=== PATIENT | female | born 1960 | race Caucasian/White ===

== ENCOUNTER 2016-11-19 21:26 | Emergency (ER) | payer SELFPAY ==
[2016-11-19 21:26] VITALS: BMI 28.3
[2016-11-19] MEDS ORDERED: Sodium Chloride 0.9% 1,000 ML IV STA (22:02)
--- NOTE | 2016-11-19 22:34 | CT ---
EXAM: CT Head Without Intravenous Contrast EXAM DATE/TIME: 11/19/2016 10:01 PM CLINICAL HISTORY: 55 years old, female; Signs and symptoms; Dizziness; Additional info: Dizziness. HX. Of TIA TECHNIQUE: Axial computed tomography images of the head/brain without intravenous contrast. All CT scans at this facility use one or more dose reduction techniques, viz.: automated exposure control; ma/kV adjustment per patient size (including targeted exams where dose is matched to indication; i.e. head); or iterative reconstruction technique. Coronal and sagittal reformatted images were created and reviewed. COMPARISON: CT - HEAD W/O CONTRAST 03/29/2015 8:07:06 PM FINDINGS: No intracranial hemorrhage. No intracranial edema. No evidence of infarct. The sinuses and mastoid air cells are clear. IMPRESSION: No acute findings. No significant change.
[2016-11-19 22:41] LABS: BASO # 0.1 K/uL (0.0-0.2); BASO % 1.1 % (0.0-2.0); EOS # 0.2 K/uL (0.0-0.7); EOS % 3.1 % (0.0-4.0); LYMPH # 2.4 K/uL (1.0-4.3); LYMPH % 33.6 % (20.0-40.0); MEAN CELL VOLUME 84.5 fl (81.0-99.0); MEAN CORPUSCULAR HEMOGLOBIN 27.7 pg (27.0-31.0); MEAN CORPUSCULAR HGB CONC 32.8 g/dL (33.0-37.0); MEAN PLATELET VOLUME 9.9 fl (7.2-11.7); MONO # 0.6 K/uL (0.0-0.8); MONO % 7.6 % (0.0-10.0); NEUT % 54.6 % (50.0-75.0); RED CELL DISTRIBUTION WIDTH 13.6 % (11.5-14.5); WHITE BLOOD COUNT 7.3 K/uL (4.8-10.8)
[2016-11-19 22:42] LABS: RBC URINE 3 /hpf (0-3); URINE BACTERIA OCC (<OCC); URINE BILIRUBIN NEGATIVE (NEGATIVE); URINE BLOOD NEGATIVE (NEGATIVE); URINE COLOR YELLOW (YELLOW); URINE GLUCOSE (UA) NEG (Normal); URINE KETONE NEGATIVE (NEGATIVE); URINE LEUKOCYTE ESTERASE MOD Leu/uL (Negative); URINE PROTEIN NEGATIVE (NEGATIVE); URINE UROBILINOGEN 0.2-1.0 mg/dL (0.2-1.0)
[2016-11-19 22:46] LABS: WBC URINE 18 /hpf (0-5)
--- NOTE | 2016-11-19 22:48 | ED PDOC ---
HPI: Neurologic - General Time Seen by Provider: 11/19/16 21:41 Chief Complaint (Nursing): Dizziness/Lightheaded Chief Complaint (Provider): Dizziness Source: patient Exam Limitations: no limitations - History of Present Illness Timing/Duration: other (x 3 days) Allergies/Adverse Reactions: Allergies No Known Allergies Allergy (Verified 04/21/15 08:02) Home Medications: Ambulatory Orders Meclizine [Antivert] 12.5 mg PO BID PRN #20 tab 03/29/15 Cyclobenzaprine [Cyclobenzaprine HCl] 10 mg PO Q8 PRN #12 tab 11/21/15 Ibuprofen [Motrin] 600 mg PO TID PRN #30 tab 11/21/15 Methylprednisolone [Medrol Dose Pack (21 tabs)] 4 mg PO DAILY #1 packet Ibuprofen [Motrin Tab] 600 mg PO Q6 #30 tab 02/11/16 Oseltamivir [Tamiflu Cap] 75 mg PO BID 5 Days 02/11/16 Ciprofloxacin [Cipro] 500 mg PO Q12 #14 tab 11/19/16 Meclizine [Antivert] 25 mg PO Q6 PRN #30 tab 11/19/16 Additional Complaint(s): Yadi is a 55 y/o female with a history of vertebral basilar insufficiency who presents complaining of intermittent dizziness associated with headache and neck pain, for 3 days. Patient reports dizziness is worse with movement and sudden change in position. Also describes nausea, she vomited once this morning. PMD: Unknown Past Medical History Reviewed: Historical Data, Nursing Documentation, Vital Signs Vital Signs: Last Vital Signs Temp 97.0 F L 11/19/16 21:30 Pulse 81 11/19/16 21:30 Resp 18 11/19/16 21:30 BP 131/58 L 11/19/16 21:30 Pulse Ox 98 11/19/16 21:30 - Medical History PMH: Gastritis, GERD, Hypercholesterolemia, TIA Denies: Chronic Kidney Disease Other PMH: vertebral basilar insufficiency - Surgical History Surgical History: Endoscopy - Family History Family History: States: Unknown Family Hx - Social History Current smoker - smoking cessation education provided: No Alcohol: None Drugs: Denies - Home Medications Home Medications: Ambulatory Orders Medication Instructions Recorded Meclizine [Antivert] 12.5 mg PO BID PRN #20 tab 03/29/15 Cyclobenzaprine [Cyclobenzaprine 10 mg PO Q8 PRN #12 tab 11/21/15 HCl] Ibuprofen [Motrin] 600 mg PO TID PRN #30 tab 11/21/15 Methylprednisolone [Medrol Dose 4 mg PO DAILY #1 packet 11/21/15 Pack (21 tabs)] Ibuprofen [Motrin Tab] 600 mg PO Q6 #30 tab 02/11/16 Oseltamivir [Tamiflu Cap] 75 mg PO BID 5 Days 02/11/16 Ciprofloxacin [Cipro] 500 mg PO Q12 #14 tab 11/19/16 Meclizine [Antivert] 25 mg PO Q6 PRN #30 tab 11/19/16 - Allergies Allergies/Adverse Reactions: Allergies Allergy/AdvReac Type Severity Reaction Status Date / Time No Known Allergies Allergy Verified 04/21/15 08:02 Review of Systems ROS Statement: Except As Marked, All Systems Reviewed And Found Negative Gastrointestinal: Positive for: Nausea, Vomiting Neurological: Positive for: Dizziness Physical Exam - Reviewed Nursing Documentation Reviewed: Yes Vital Signs Reviewed: Yes - Physical Exam Appears: Positive for: Non-toxic, No Acute Distress Head Exam: Positive for: ATRAUMATIC, NORMAL INSPECTION, NORMOCEPHALIC Skin: Positive for: Normal Color, Warm, Dry Eye Exam: Positive for: EOMI, Normal appearance, PERRL Neck: Positive for: Normal, Painless ROM, Supple Cardiovascular/Chest: Positive for: Regular Rate, Rhythm. Negative for: Murmur Respiratory: Positive for: Normal Breath Sounds. Negative for: Accessory Muscle Use, Respiratory Distress Gastrointestinal/Abdominal: Positive for: Normal Exam, Soft. Negative for: Tenderness Back: Positive for: Normal Inspection. Negative for: L CVA Tenderness, R CVA Tenderness, Vertebral Tenderness Extremity: Positive for: Normal ROM. Negative for: Pedal Edema, Deformity Neurologic/Psych: Positive for: Alert, Oriented. Negative for: Motor/Sensory Deficits - Laboratory Results Result Diagrams: 11/19/16 22:09 11/19/16 22:40 - ECG O2 Sat by Pulse Oximetry: 98 (RA) Pulse Ox Interpretation: Normal Medical Decision Making Medical Decision Making: Time: 21:15 Initial Impression: 55 y/o female with vertiginous dizziness Initial Plan: --CT Head w/o contrast --EKG --CMP --Urine test --Urine dipstick --Urinalysis --CBC --PTT --Prothrombin time --NS IV 1000 ml at 1000 mls/hr --Trial of Meclizine --Pending reevaluation and disposition Time: 22:34 CT Head w/o contrast: FINDINGS: No intracranial hemorrhage. No intracranial edema. No evidence of infarct. The sinuses and mastoid air cells are clear. IMPRESSION: No acute findings. No significant change. --Labs reviewed, and revealed no clinically significant abnormalities, with the exception of urinalysis significant for UTI Time: 23:05 --Given 10 mg Toradol IV and 10 mg Flexeril PO Time: 23:49 --Patient reports significant improvement in symptoms Diagnoses: Vertigo, UTI Upon provider reevaluation patient is feeling better, medically stable, and requires no further treatment in the ED at this time. Patient will be discharged with Rx for Antivert and Cipro. Counseling was provided and all questions were answered regarding diagnosis and need for follow up with PMD. There is agreement to discharge plan. Return if symptoms persist or worsen. Scribe Attestation: Documented by Nakia Casanova, acting as a scribe for Andrew Mendoza MD Provider Scribe Attestation: All medical record entries made by the Scribe were at my direction and personally dictated by me. I have reviewed the chart and agree that the record accurately reflects my personal performance of the history, physical exam, medical decision making, and the department course for this patient. I have also personally directed, reviewed, and agree with the discharge instructions and disposition. Disposition - Clinical Impression Clinical Impression: Vertigo - Patient ED Disposition Is Patient to be Admitted: No Counseled Patient/Family Regarding: Studies Performed, Diagnosis, Need For Followup - Disposition Disposition: Routine/Home Disposition Time: 23:49 Condition: STABLE Prescriptions: Ciprofloxacin [Cipro] 500 mg PO Q12 #14 tab Meclizine [Antivert] 25 mg PO Q6 PRN #30 tab PRN Reason: Dizziness Instructions: Urinary Tract Infection in Women (ED), Vertigo (ED) Forms: [employer] (Tanzanian) Print Language: INDONESIAN
[2016-11-19 22:52] LABS: ALB/GLOB RATIO 1.7 (1.0-2.1); ALKALINE PHOSPHATASE 111 U/L (38-126); ALT/SGPT 81 U/L (9-52); AST/SGOT 41 U/L (14-36); BILIRUBIN,TOTAL 0.4 mg/dl (0.2-1.3); BLOOD UREA NITROGEN 17 mg/dl (7-17); CALCIUM 9.5 mg/dL (8.4-10.2); CARBON DIOXIDE 23 mmol/L (22-30); CHLORIDE 105 mmol/L (98-107); GFR AFRICAN-AMERICAN > 60; GLUCOSE,RANDOM 112 mg/dL (65-105); POTASSIUM 3.8 MMOL/L (3.6-5.0); SODIUM 139 mmol/l (132-148); TOTAL PROTEIN 7.1 G/DL (6.3-8.2)
[2016-11-19 22:54] LABS: PARTIAL THROMBOPLASTIN TIME 32.4 Seconds (25.6-37.1)
[2016-11-20 00:29] VITALS: BP 129/76; PULSE 78; RESP 16; TEMP 98; O2SAT 99
--- NOTE | 2016-11-20 21:08 | CARD ---
APPROVED REPORT EKG Measurement Heart [id number] <Conclusion> Normal sinus rhythm Normal ECG
== END 2016-11-20 00:30 | disposition home or self-care (01) ==
LOC: H.ER 21:26
DX: R42 Dizziness and giddiness (principal); N39.0 Urinary tract infection, site not specified; K21.9 Gastro-esophageal reflux disease without esophagitis; Z86.73 Personal history of transient ischemic attack (TIA), and cerebral infarction without residual deficits
CPT/HCPCS: 70450; 80053; 81003; 85025; 85610; 85730; 93005; 96360; 99283; J1885; J7040

== ENCOUNTER 2017-10-27 18:50 | Emergency (ER) | payer SELFPAY ==
[2017-10-27 19:06] VITALS: BP 118/52; PULSE 78; RESP 16; TEMP 98.5; O2SAT 97
[2017-10-27 19:08] VITALS: BMI 29.2
--- NOTE | 2017-10-27 19:29 | ED PDOC ---
HPI: Back Time Seen by Provider: 10/27/17 19:29 Chief Complaint (Nursing): Back Pain Chief Complaint (Provider): back pain History Per: Patient Additional Complaint(s): 56-year-old female presents with lower back pain 1 week. Patient states the pain radiates down her left lower extremity from time to time. She denies recent fall or trauma. Tylenol has provided minimal relief pain. She last took Tylenol 1 hour prior to arrival. Patient denies any bowel or bladder dysfunction. PMD: [facility] Past Medical History Reviewed: Historical Data, Nursing Documentation, Vital Signs Vital Signs: Last Vital Signs Temp 98.5 F 10/27/17 19:05 Pulse 78 10/27/17 19:05 Resp 16 10/27/17 19:05 BP 118/52 L 10/27/17 19:05 Pulse Ox 97 10/27/17 19:05 - Medical History PMH: Gastritis, GERD, Hypercholesterolemia, TIA - Surgical History Surgical History: Endoscopy - Family History Family History: States: No Known Family Hx - Living Arrangements Living Arrangements: With Family - Social History Current smoker - smoking cessation education provided: No Alcohol: None Drugs: Denies - Home Medications Home Medications: Ambulatory Orders Medication Instructions Recorded Meclizine [Antivert] 12.5 mg PO BID PRN #20 tab 03/29/15 Cyclobenzaprine [Cyclobenzaprine 10 mg PO Q8 PRN #12 tab 11/21/15 HCl] Ibuprofen [Motrin] 600 mg PO TID PRN #30 tab 11/21/15 Methylprednisolone [Medrol Dose 4 mg PO DAILY #1 packet 11/21/15 Pack (21 tabs)] Ibuprofen [Motrin Tab] 600 mg PO Q6 #30 tab 02/11/16 Oseltamivir [Tamiflu Cap] 75 mg PO BID 5 Days cap 02/11/16 Ciprofloxacin [Cipro] 500 mg PO Q12 #14 tab 11/19/16 Cyclobenzaprine [Cyclobenzaprine 10 mg PO TID PRN #15 tab 11/20/16 HCl] Meclizine [Antivert] 25 mg PO Q6 PRN #30 tab 11/20/16 Cyclobenzaprine [Cyclobenzaprine 10 mg PO TID PRN #20 tab 10/27/17 HCl] Prednisone 50 mg PO DAILY #5 tablet 10/27/17 traMADol [Ultram] 50 mg PO Q6H PRN #15 tab 10/27/17 - Allergies Allergies/Adverse Reactions: Allergies Allergy/AdvReac Type Severity Reaction Status Date / Time No Known Allergies Allergy Verified 04/21/15 08:02 Review of Systems ROS Statement: Except As Marked, All Systems Reviewed And Found Negative Constitutional: Negative for: Fever Cardiovascular: Negative for: Chest Pain Respiratory: Negative for: Cough Gastrointestinal: Negative for: Nausea, Vomiting Genitourinary Female: Negative for: Dysuria, Frequency, Incontinence Musculoskeletal: Positive for: Back Pain Physical Exam - Reviewed Nursing Documentation Reviewed: Yes Vital Signs Reviewed: Yes - Physical Exam Appears: Positive for: Well, Non-toxic, No Acute Distress Skin: Positive for: Normal Color. Negative for: Rash Eye Exam: Positive for: Normal appearance Neck: Positive for: Normal Cardiovascular/Chest: Positive for: Regular Rate, Rhythm Respiratory: Positive for: Normal Breath Sounds Back: Positive for: Vertebral Tenderness (Tenderness along midline of lumbar spine with no step-off, negative bilateral straight leg raise, patient able to heel and toe walk). Negative for: L CVA Tenderness, R CVA Tenderness Extremity: Positive for: Normal ROM Neurologic/Psych: Positive for: Alert, Oriented, Gait (steady) - Laboratory Results Urine dip results: Negative for: Leukocyte Esterase, Blood, Nitrate, Ketones, Glucose, Bilirubin, Protein - ECG O2 Sat by Pulse Oximetry: 97 Pulse Ox Interpretation: Normal - Other Rad LS Spine X-ray X-Ray: Interpreted by Me, Viewed By Me X-Ray Interpretation: no acute finding Medical Decision Making Medical Decision Makin56 y/o with low back pain Plan: PO tramadol and flexeril X-ray LS Spine Urine dip Patient states she feels better after meds given in ED. Patient aware of all diagnostic testing results, all questions answered. Prescriptions for tramadol, Flexeril and prednisone provided. Patient advised to follow-up with clinic in 2- 3 days. Disposition - Clinical Impression Clinical Impression: Back strain - Patient ED Disposition Is Patient to be Admitted: No Counseled Patient/Family Regarding: Studies Performed, Diagnosis, Need For Followup, Rx Given - Disposition Referrals: [facility] [Outside] Disposition: Routine/Home Disposition Time: 21:06 Condition: IMPROVED Additional Instructions: Take prescription meds as directed as needed for pain. Follow-up with clinic in 2-3 days. Prescriptions: Cyclobenzaprine [Cyclobenzaprine HCl] 10 mg PO TID PRN #20 tab PRN Reason: Muscle Spasm Prednisone 50 mg PO DAILY #5 tablet traMADol [Ultram] 50 mg PO Q6H PRN #15 tab PRN Reason: Pain, Moderate (4-7) Instructions: Muscle Strain, Low Back Pain in Adults, Back Exercises Forms: [employer] (Tristanian) Print Language: MACEDONIAN
--- NOTE | 2017-10-28 08:39 | RAD ---
Date of service: 10/27/2017 PROCEDURE: Radiographs of the Lumbar Spine. HISTORY: trauma COMPARISON: No prior. FINDINGS: BONES: Normal alignment. No listhesis. No fracture. DISC SPACES: Normal intervertebral disc and vertebral body heights are identified. Facet joint arthropathy is appreciated L5-S1. OTHER FINDINGS: None. IMPRESSION: No fracture or spondylolisthesis identified. Normal alignment identified. Degenerative facet joint arthropathy L5-S1.
== END 2017-10-27 21:16 | disposition home or self-care (01) ==
LOC: H.ER 18:50
DX: S39.012A Strain of muscle, fascia and tendon of lower back, initial encounter (principal); Y92.89 Other specified places as the place of occurrence of the external cause; E78.00 Pure hypercholesterolemia, unspecified; K21.9 Gastro-esophageal reflux disease without esophagitis; Z86.73 Personal history of transient ischemic attack (TIA), and cerebral infarction without residual deficits